=== PATIENT | female | born 1945 | race Caucasian/White ===

== ENCOUNTER 2016-06-28 07:17 | Day surgery (SDC) | payer MEDICARE, OTHER ==
[~2016-06-28] VITALS: Ht 160 cm; Wt 68.2 kg
[~2016-06-28 07:17] MED LIST: AMBIEN10 MG PO; BIOTIN5 MG PO; BUTALB-APAP-CA1 EACH PO; CALCIUM 600 +1 EAC3 PO; CARAFATE1 G PO; CELEXA20 MG PO; CYMBALTA30 MG PO; CYPROHEPTADINE H4 MG PO; GLUCOSAMINE & C1 CAP PO; HYDROCODONE-APA1 TAB PO; IMITREX100 MG PO; KLONOPIN1 MG PO; LEVSIN/ANASP0.125 MG PO; LOPRESSOR25 MG PO; MULTIPLE VITAMI1 TA1 PO; OMEPRAZOLE40 MG PO; PEPCID40 MG PO; PRAVACHOL40 MG PO; PROBIOTIC1 EAC1 PO; PROTONIX40 MG PO; REQUIP1 MG PO; ROBAXIN-750750 MG PO; SYNTHROID50 MCG PO; TENORMIN50 MG PO; ZOFRAN4 MG PO; ZOLOFT100 MG PO
[2016-06-28 08:19] LABS: BASOPHILS 0.4 % (0.0-2.0); EOSINOPHILS 3.6 % (0-7); HEMATOCRIT 42.4 % (36.0-48.0); IMMATURE GRANULOCYTES 0.1 % (0-5); LYMPHOCYTES 42.1 % (15-50); MCH 29.4 pg (26.0-34.0); MCV 89.1 fL (80.0-100.0); MEAN PLATELET VOLUME 8.7 fL (7.4-10.4); MONOCYTES 8.9 % (2-11); NEUTROPHILS 44.9 % (40-80); PLATELET COUNT 161 10x3/uL (130-400); RBC 4.76 10x6/uL (4.00-5.40); RDW 13.6 % (11.5-14.5)
[2016-06-28 08:58] LABS: CALC OSMOLALITY 283 mosm/kg (275-300); CALCIUM 8.8 mg/dL (8.5-10.1); CARBON DIOXIDE 27.3 mmol/L (21.0-32.0); CHLORIDE - SERUM 106 mmol/L (98-107); CREATININE - SERUM 0.8 mg/dL (0.6-1.3); GLUCOSE 101 mg/dL (74-106); POTASSIUM - SERUM 4.1 mmol/L (3.5-5.1); SODIUM 141 mmol/L (136-145); UREA NITROGEN 20 mg/dL (7-18); eGFR NON AFRICAN AMERICAN 75 mL/min (90-120)
[2016-06-28 09:08] VITALS: BP 112/70; BMI 26.6
[2016-06-28 13:30] VITALS: BP 124/73
--- NOTE | 2016-06-28 13:35 | NUR ---
RECEIVED TO ROOM 2205 FROM RECOVERY ROOM VIA BED. VSS. CALL LIGHT IN REACH. WILL CONTINUE WITH PLAN OF CARE.
--- NOTE | 2016-06-28 14:00 | NUR ---
PATIENT IN BED WITH IV INTACT. NO COMPLAINTS. VS STABLE. BSCDS ON AND WORKING. CALL LIGHT WITHIN REACH.
--- NOTE | 2016-06-28 16:25 | NUR ---
PATIENT IN BED WITH IV INTACT. PATIENT VS STABLE. FAMILY AT BEDSIDE. CALL LIGHT WITHIN REACH. 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
[2016-06-28 17:07] VITALS: BP 108/67
[2016-06-28 18:41] VITALS: Ht 160 cm; Wt 68.2 kg
--- NOTE | 2016-06-28 18:45 | NUR ---
PATIENT IN BED VS STABLE. VS MACHINE UNPLUGGED AT THIS TIME AND LOST ALL POST OP VITALS. ALL VS HAVE BEEN WNL SINCE PATIENT HAS BEEN BACK TO THE UNIT. BANDAIDS TO ABDOMEN STILL CDI. BSCDS ON. FAMILY AT BEDSIDE. CALL LIGHT WITHIN REACH.
[2016-06-28 20:00] VITALS: BP 128/80
--- NOTE | 2016-06-28 22:04 | NUR ---
RESTING WITH EYES CLOSED, NO DISTRESS NOTED, FALL PRECAUTIONS IN PLACE, CL IN REACH
--- NOTE | 2016-06-28 22:14 | NUR ---
PATIENT RESTING IN BED. NO SIGNS OF DISTRESS NOTED. ALERT AND ORIENTED. SCHEDULED MEDS GIVEN. SHIFT ASSESSMENT COMPLETED. DENIES ANY NEEDS AT THIS TIME. BED LOW. CALL LIGHT IN REACH
[2016-06-29] VITALS: BP 114/75
[2016-06-29 04:00] VITALS: BP 120/70
[2016-06-29 05:51] LABS: BASOPHILS 0.2 % (0.0-2.0); EOSINOPHILS 0.2 % (0-7); HEMATOCRIT 38.1 % (36.0-48.0); HEMOGLOBIN 12.5 g/dL (12-16); IMMATURE GRANULOCYTES 0.2 % (0-5); LYMPHOCYTES 21.4 % (15-50); MCH 29.6 pg (26.0-34.0); MCHC 32.8 g/dL (31.0-37.0); MCV 90.3 fL (80.0-100.0); MEAN PLATELET VOLUME 9.4 fL (7.4-10.4); MONOCYTES 11.2 % (2-11); NEUTROPHILS 66.8 % (40-80); PLATELET COUNT 172 10x3/uL (130-400); RBC 4.22 10x6/uL (4.00-5.40); RDW 13.8 % (11.5-14.5); WBC 9.3 10x3/uL (4.8-10.8)
[2016-06-29 05:58] LABS: CALC OSMOLALITY 278 mosm/kg (275-300); CALCIUM 8.5 mg/dL (8.5-10.1); CARBON DIOXIDE 24.5 mmol/L (21.0-32.0); CHLORIDE - SERUM 105 mmol/L (98-107); CREATININE - SERUM 0.8 mg/dL (0.6-1.3); GLUCOSE 103 mg/dL (74-106); SODIUM 139 mmol/L (136-145); UREA NITROGEN 16 mg/dL (7-18); eGFR NON AFRICAN AMERICAN 75 mL/min (90-120)
--- NOTE | 2016-06-29 07:00 | NUR ---
REPORT RECIEVED ASSUMED CARE. PATIENT IN BED WITH IV INTACT. NO COMPLAINTS. CALL LIGHT WITHIN REACH.
[2016-06-29 08:40] VITALS: BP 124/74
[2016-06-29] MEDS ORDERED: HYDROCODONE-APA1 TAB PO (10:29)
[2016-06-29] MEDS ORDERED: REGLAN10 MG PO (10:29)
[2016-06-29] MEDS ORDERED: PHENERGAN25 M1 PO (10:30)
--- NOTE | 2016-06-29 12:30 | NUR ---
PATIENT IN TOLERATED CLEAR LIQUIDS AT THIS TIME. IV INTACT. NO COMPLAINTS. CALL LIGHT WITHIN REACH.
[2016-06-29 12:43] VITALS: BP 140/77
--- NOTE | 2016-06-29 15:00 | NUR ---
PATIENT UP AMBULATING IN MICHEL WITH . NO COMPLAINTS. CALL LIGHT WITHIN REACH.
--- NOTE | 2016-06-29 16:15 | NUR ---
PATIENT RECIEVED DC INSTRUCTIONS AND PRESCRIPTION. VERBALIZED UNDERSTANDING. NO QUESTIONS AT THIS TIME. IV REMOVED WITH CATH TIP INTACT. CALL LIGHT WITHIN REACH. AWAITING WC FOR DC.
--- NOTE | 2016-07-08 13:21 | OP ---
PATIENT NAME: ROBYN RICHARDSON MEDICAL RECORD: [id number] :49 LOCATION:D.OPS ADMISSION DATE: SURGEON: MARK ORTIZ MD DATE OF OPERATION: 06/28/2016 PREOPERATIVE DIAGNOSES: 1. Recurrent gastroesophageal reflux disease, status post TIF procedure. 2. Hypercholesterolemia. 3. Arthritis. POSTOPERATIVE DIAGNOSES: 1. Recurrent gastroesophageal reflux disease, status post TIF procedure. 2. Hypercholesterolemia. 3. Arthritis. PROCEDURE: Laparoscopic hiatal hernia repair with Bill fundoplication. SURGEON: Mark Ortiz MD REPORT OF PROCEDURE: The patient's abdomen was prepped and draped in sterile fashion. A Veress needle was inserted in the left upper quadrant and abdomen was insufflated. An 11-mm Visiport trocar was inserted in the midline just above the umbilicus. The Veress needle was inspected and showed no signs of any injury to bowel or surrounding structures. The 12-mm trocar was then placed in the left subcostal region. A 5-mm trocar was placed in the epigastrium. The 5-mm trocar was placed in the left lateral abdomen and a 5-mm trocar was placed in the right lateral subcostal region. The liver retractor was inserted and the left lobe of the liver was elevated. The patient's stomach was grasped and as we began our dissection of the lesser omentum. We worked our way up to the right side of the right manpreet. There was noted to be a lot of old scar tissue present in this area and then with tedious dissection, we were able to get past the scar tissue and up into the thoracic cavity. We were able to see the patient's stomach at this point. We dissected this tissue going down and went as far anteriorly and posteriorly as possible. Portion of the previous hiatal hernia repair was still intact, but there was still a large opening present. We then approached the greater curvature of the stomach and took down the short gastrics using Harmonic scalpel. This dissection was continued all the way up to the left side of the right manpreet. As we dissected this free, again we encountered a lot of old adhesions. The H-shaped fasteners from the previous TIF devices were noted in this region. We continued our dissection through this piece of tissue and was eventually able to free all this up and at this point, we had a 360-degree inspection of the patient's esophagus. We extended our dissection up into the thoracic cavity, making sure that the stomach would easily lie down in the abdomen. At this point, just to assure that we were in the correct spot, I performed an EGD, the endoscope was advanced through the mouth and esophagus and into the stomach. As we inspected the stomach, I could see where it was in relation to or intra-abdominal laparoscopic camera. At this point, I felt comfortable with where our positioning was and we discontinued the EGD. The esophageal hiatus was then closed with interrupted 0 Polydeks times 2 with good approximation of the tissue. We then performed a 360-degree posterior wrap of the fundus of the stomach around the distal esophagus. This was done using interrupted 0 Polydeks times 3, incorporating a bite of the esophagus with the upper and lower sutures. The wrap appeared to be in good position. The indwelling OG tube was removed with ease. We irrigated out the left upper quadrant and assured there was no sign of any bleeding or bile leakage. The 11 OPERATIVE REPORT [id number] ROBYN RICHARDSON and 12 mm trocar site fascias were closed with 0 Vicryl using a David-Uriel suture passer device. The ports and insufflation were then removed. The subcutaneous tissues were irrigated out with normal saline and infused with 10 mL of 0.25% Marcaine with epinephrine. The skin incisions were all closed with subcutaneous 5-0 Monocryl and dressed appropriately. COMPLICATIONS: None. CONDITION: Stable. ANESTHESIA: General endotracheal and local. BLOOD LOSS: Minimal. TRANSINT:[id number] Voice Confirmation ID: [id number] DOCUMENT ID: [id number] MARK ORTIZ MD at 1321 CC: JOHN ALEJANDRE MD and SMOOTH DAHL MD [id number] DICTATION DATE: 06/29/16 0943 AUTO DESIGN CHECKER: 06/29/[address] [place] [address] 06/29/16 [id number] [place] [address]
== END 2016-06-29 18:14 | disposition home or self-care (01) ==
LOC: D.MS 07:17 → D.OPS 07:17 → D.PAN 07:30 → D.OPS 09:35 → D.MS 12:46 → D.OPS 06-29 18:14
PROVIDERS: Surgery
DX: K21.9 Gastro-esophageal reflux disease without esophagitis (principal); E78.00 Pure hypercholesterolemia, unspecified; M19.90 Unspecified osteoarthritis, unspecified site